=== PATIENT | female | born 1990 | race Caucasian/White ===

== ENCOUNTER 2020-08-19 11:13 | Outpatient (CLI) | payer OTHER, SELFPAY ==
[2020-08-19 11:47] LABS: Basophils Percent Auto 1.3 % (0.2-1.2); Eosinophils Absolute Auto 0.1 K/mm3 (0-0.3); Eosinophils Percent Auto 1.9 % (0-4.4); Hemoglobin 14.2 g/dL (12.0-15.0); Lymphocytes Absolute Auto 1.54 K/mm3 (0.9-3.2); Lymphocytes Percent Auto 48.1 % (18.3-44.2); Mean Corpuscular HGB Conc 33.8 g/dl (32-36); Mean Corpuscular Hemoglobin 30.5 pg (26-34); Mean Corpuscular Volume 90.3 fl (80-100); Mean Platelet Volume 9.6 fl (7.4-10.4); Monocytes Absolute Auto 0.2 K/mm3 (0.1-0.6); Monocytes Percent Auto 7.2 % (2.6-8.5); Neutrophils Absolute Auto 1.3 K/mm3 (1.3-6.7); Neutrophils Percent Auto 41.5 % (45.5-73.1); Platelet Count Result 197 k/mm3 (150-375); Red Blood Count 4.65 M/mm3 (4.2-5.4); Red Cell Distribution Width 11.7 % (11.5-14.5); White Blood Count 3.2 K/mm3 (4.5-10.0)
[2020-08-19 12:00] LABS: Anion Gap 6 mmol/L (8-16); Blood Urea Nitrogen 6 mg/dL (7-17); Calcium 9.9 mg/dL (8.4-10.2); Carbon Dioxide 29 mmol/L (22-30); Chloride 104 mmol/L (98-107); Estimated Glomerular Filt Rate > 60; Glucose 91 mg/dL (65-105); Potassium 4.1 mmol/L (3.4-5.0); Sodium 139 mmol/L (137-145)
[2020-08-19 12:29] LABS: Thyroid Stimulating Hormone 0.829 uIU/mL (0.465-4.680)
== END 2020-08-19 11:14 | disposition home or self-care (01) ==
LOC: ANHLAB 11:15
PROVIDERS: PCP Family Medicine; Visit Provider Nurse Practitioner Family
DX: R59.1 Generalized enlarged lymph nodes (principal); Z80.7 Family history of other malignant neoplasms of lymphoid, hematopoietic and related tissues; Z13.1 Encounter for screening for diabetes mellitus; Z13.29 Encounter for screening for other suspected endocrine disorder
CPT/HCPCS: 36415; 80048; 84443; 85025

== ENCOUNTER 2020-08-26 13:33 | Outpatient (CLI) | payer OTHER, SELFPAY ==
--- NOTE | ~2020-08-26 | US_ITS ---
EXAMINATION: US soft tissue head and neck DATE: 08/26/2020 14:05 INDICATION: Localized enlarged lymph nodes. Left supraclavicular swelling. TECHNIQUE: Multiple grayscale and Doppler ultrasound images of the left subclavicular region were obt ained. COMPARISON: None FINDINGS: There are normal lymph nodes in the left supraclavicular region in the patient's area of co ncern. IMPRESSION: 1. Normal left subclavicular lymph nodes in the patient's area of concern. Reviewed, dictated and finalized at location A. OLIDS MANAGEMENT TECHNICIAN
== END 2020-08-26 13:34 | disposition home or self-care (01) ==
PROVIDERS: PCP Family Medicine; Visit Provider Nurse Practitioner Family
DX: R59.0 Localized enlarged lymph nodes (principal)
CPT/HCPCS: 76536

== ENCOUNTER 2020-09-05 16:23 | Outpatient (CLI) | payer OTHER, SELFPAY ==
[2020-09-05 16:48] LABS: Basophils Percent Auto 0.7 % (0.2-1.2); Eosinophils Absolute Auto 0.1 K/mm3 (0-0.3); Eosinophils Percent Auto 2.9 % (0-4.4); Hematocrit 37.7 % (37.0-47.0); Hemoglobin 12.8 g/dL (12.0-15.0); Lymphocytes Absolute Auto 1.83 K/mm3 (0.9-3.2); Lymphocytes Percent Auto 44.2 % (18.3-44.2); Mean Corpuscular Hemoglobin 30.7 pg (26-34); Mean Corpuscular Volume 90.4 fl (80-100); Mean Platelet Volume 9.6 fl (7.4-10.4); Monocytes Absolute Auto 0.3 K/mm3 (0.1-0.6); Monocytes Percent Auto 7.7 % (2.6-8.5); Neutrophils Absolute Auto 1.8 K/mm3 (1.3-6.7); Neutrophils Percent Auto 44.5 % (45.5-73.1); Platelet Count Result 199 k/mm3 (150-375); Red Blood Count 4.17 M/mm3 (4.2-5.4); White Blood Count 4.1 K/mm3 (4.5-10.0)
== END 2020-09-05 16:24 | disposition home or self-care (01) ==
LOC: ANHLAB 16:25
PROVIDERS: PCP Family Medicine; Visit Provider Physician Assistant Medical
DX: D72.9 Disorder of white blood cells, unspecified (principal)
CPT/HCPCS: 36415; 85025

== ENCOUNTER 2020-09-24 07:39 | Outpatient (CLI) | payer OTHER, SELFPAY ==
--- NOTE | ~2020-09-24 | US_ITS ---
US abdomen complete DATE: 09/24/2020 08:59 INDICATION: Leukopenia TECHNIQUE: Real-time imaging and Doppler analysis COMPARISON: None FINDINGS: No hepatic or pancreatic space-occupying mass lesion is evident. Normal hepatopedal portal venous flow direction. The common bile duct measures 4.7 mm, within normal limits. No gallstones or gallbladder wall thickening. Negative sonographic Carrera's sign. No renal mass lesion or hydronephrosis. Normal caliber of the abdominal aorta. Normal splenic size. Normal caliber of the abdominal aorta. The inferior vena cava is unremarkable. IMPRESSION: No significant abnormality Reviewed, dictated and finalized at Location A. Reviewed, dictated and finalized at location A. SPOTTER IMPRESSION: No significant abnormality
[2020-09-24 08:10] LABS: Basophils Percent Auto 0.7 % (0.2-1.2); Eosinophils Absolute Auto 0.1 K/mm3 (0-0.3); Hematocrit 40.6 % (37.0-47.0); Hemoglobin 13.7 g/dL (12.0-15.0); Immature Granulocyte Absolute 0.01 K/mm3 (0.00-0.031); Immature Granulocyte Percent A 0.2 % (0-0.5); Lymphocytes Absolute Auto 1.75 K/mm3 (0.9-3.2); Lymphocytes Percent Auto 43.6 % (18.3-44.2); Mean Corpuscular HGB Conc 33.7 g/dl (32-36); Mean Corpuscular Hemoglobin 30.8 pg (26-34); Mean Corpuscular Volume 91.2 fl (80-100); Mean Platelet Volume 9.7 fl (7.4-10.4); Monocytes Absolute Auto 0.3 K/mm3 (0.1-0.6); Monocytes Percent Auto 6.7 % (2.6-8.5); Neutrophils Absolute Auto 1.8 K/mm3 (1.3-6.7); Neutrophils Percent Auto 45.8 % (45.5-73.1); Platelet Count Result 187 k/mm3 (150-375); Red Blood Count 4.45 M/mm3 (4.2-5.4); Red Cell Distribution Width 11.9 % (11.5-14.5)
[2020-09-24 08:23] LABS: Alanine Aminotransferase 21 U/L (4-35); Albumin Level 4.6 g/dL (3.5-5.1); Alkaline Phosphatase 34 U/L (38-126); Anion Gap 8 mmol/L (8-16); Aspartate Amino Transferase 29 U/L (14-36); Bilirubin,Total 0.8 mg/dL (0.2-1.3); Blood Urea Nitrogen 10 mg/dL (7-17); Calcium 9.4 mg/dL (8.4-10.2); Carbon Dioxide 28 mmol/L (22-30); Chloride 104 mmol/L (98-107); Estimated Glomerular Filt Rate > 60; Glucose 91 mg/dL (65-105); Potassium 3.9 mmol/L (3.4-5.0); Sodium 140 mmol/L (137-145)
[2020-09-24 08:49] LABS: Iron 146 ug/dL (37-170)
[2020-09-24 08:58] LABS: Percent Iron Saturation 51 % (20-50)
[2020-09-24 09:32] LABS: Folic Acid > 20.0 ng/mL (2.76->20)
== END 2020-09-24 07:40 | disposition home or self-care (01) ==
PROVIDERS: PCP Family Medicine; Visit Provider Internal Medicine Hematology & Oncology
DX: D72.819 Decreased white blood cell count, unspecified (principal)
CPT/HCPCS: 36415; 76700; 80053; 82607; 82728; 82746; 83540; 83550; 85025; 86038

== ENCOUNTER 2021-01-06 11:42 | Outpatient (CLI) | payer OTHER, SELFPAY ==
[2021-01-06 12:03] LABS: Basophils Percent Auto 0.8 % (0.2-1.2); Eosinophils Absolute Auto 0.1 K/mm3 (0-0.3); Eosinophils Percent Auto 1.6 % (0-4.4); Hematocrit 39.2 % (37.0-47.0); Lymphocytes Absolute Auto 1.48 K/mm3 (0.9-3.2); Lymphocytes Percent Auto 40.5 % (18.3-44.2); Mean Corpuscular HGB Conc 33.2 g/dl (32-36); Mean Corpuscular Hemoglobin 30.2 pg (26-34); Mean Platelet Volume 9.3 fl (7.4-10.4); Monocytes Absolute Auto 0.3 K/mm3 (0.1-0.6); Monocytes Percent Auto 7.7 % (2.6-8.5); Neutrophils Absolute Auto 1.8 K/mm3 (1.3-6.7); Neutrophils Percent Auto 49.4 % (45.5-73.1); Platelet Count Result 196 k/mm3 (150-375); Red Blood Count 4.31 M/mm3 (4.2-5.4); Red Cell Distribution Width 11.9 % (11.5-14.5); White Blood Count 3.7 K/mm3 (4.5-10.0)
[2021-01-06 12:25] LABS: Iron 129 ug/dL (37-170)
[2021-01-06 12:35] LABS: Percent Iron Saturation 48 % (20-50)
[2021-01-06 14:52] LABS: Folic Acid > 20.0 ng/mL (2.76->20)
== END 2021-01-06 11:43 | disposition home or self-care (01) ==
LOC: ANHLAB 11:46
PROVIDERS: PCP Family Medicine; Visit Provider Internal Medicine Hematology & Oncology
DX: D72.819 Decreased white blood cell count, unspecified (principal)
CPT/HCPCS: 36415; 82607; 82728; 82746; 83540; 83550; 85025

== ENCOUNTER 2021-05-08 15:06 | Outpatient (CLI) | payer OTHER, SELFPAY ==
[2021-05-08 15:40] LABS: Basophils Percent Auto 0.4 % (0.2-1.2); Eosinophils Absolute Auto 0.1 K/mm3 (0-0.3); Eosinophils Percent Auto 1.5 % (0-4.4); Hematocrit 37.5 % (37.0-47.0); Hemoglobin 12.8 g/dL (12.0-15.0); Immature Granulocyte Absolute 0.01 K/mm3 (0.00-0.031); Immature Granulocyte Percent A 0.2 % (0-0.5); Lymphocytes Absolute Auto 1.66 K/mm3 (0.9-3.2); Lymphocytes Percent Auto 36.2 % (18.3-44.2); Mean Corpuscular HGB Conc 34.1 g/dl (32-36); Mean Corpuscular Volume 90.8 fl (80-100); Mean Platelet Volume 9.4 fl (7.4-10.4); Monocytes Absolute Auto 0.3 K/mm3 (0.1-0.6); Monocytes Percent Auto 7.4 % (2.6-8.5); Neutrophils Absolute Auto 2.5 K/mm3 (1.3-6.7); Neutrophils Percent Auto 54.3 % (45.5-73.1); Platelet Count Result 185 k/mm3 (150-375); Red Blood Count 4.13 M/mm3 (4.2-5.4); Red Cell Distribution Width 11.9 % (11.5-14.5); White Blood Count 4.6 K/mm3 (4.5-10.0)
[2021-05-08 16:50] LABS: Folic Acid > 20.0 ng/mL (2.76->20)
[2021-05-08 17:10] LABS: Iron 117 ug/dL (37-170)
[2021-05-08 17:19] LABS: Percent Iron Saturation 46 % (20-50)
== END 2021-05-08 15:07 | disposition home or self-care (01) ==
LOC: ANHLAB 15:09
PROVIDERS: PCP Family Medicine; Visit Provider Internal Medicine Hematology & Oncology
DX: D72.819 Decreased white blood cell count, unspecified (principal); D50.9 Iron deficiency anemia, unspecified
CPT/HCPCS: 36415; 82607; 82728; 82746; 83540; 83550; 85025

== ENCOUNTER 2022-05-22 04:57 | Inpatient (IN) | payer OTHER, SELFPAY ==
[2022-05-22] VITALS (106 sets, daily range): BP systolic 91–133; BP diastolic 39–111; PULSE 64–145; RESP 16–18; TEMP 36.6–37; O2SAT 79–100; BMI 33.2
--- NOTE | 2022-05-22 05:23 | LDADM ---
This patient, Fadi Chi, was admitted to Labor/Delivery/Recovery 105 on 05/22/22 at 04:57. Plans for labor, pain management and were discussed with patient. Patient/family oriented to hospital policies and general routines including ID bracelet, bed and alarms, visiting hours, pain management, procedures, bathroom and other care routines, personal items, smoking policy, room service/diet and guest tray routines, infant security routines, and visiting hours. Patient/Family are encouraged to report perceived risks to care and to ask questions if they do not understand what they are told or what they should do. See OBIX for further documentation.
[2022-05-22 05:29] LABS: Basophils Percent Auto 0.3 % (0.2-1.2); Eosinophils Percent Auto 0.6 % (0-4.4); Hematocrit 40.1 % (37.0-47.0); Hemoglobin 13.8 g/dL (12.0-15.0); Immature Granulocyte Absolute 0.01 K/mm3 (0.00-0.031); Immature Granulocyte Percent A 0.1 % (0-0.5); Lymphocytes Absolute Auto 1.78 K/mm3 (0.9-3.2); Lymphocytes Percent Auto 25.8 % (18.3-44.2); Mean Corpuscular HGB Conc 34.4 g/dl (32-36); Mean Corpuscular Hemoglobin 32.2 pg (26-34); Mean Corpuscular Volume 93.5 fl (80-100); Mean Platelet Volume 10.6 fl (7.4-10.4); Monocytes Absolute Auto 0.5 K/mm3 (0.1-0.6); Monocytes Percent Auto 7.4 % (2.6-8.5); Neutrophils Absolute Auto 4.5 K/mm3 (1.3-6.7); Neutrophils Percent Auto 65.8 % (45.5-73.1); Platelet Count Result 173 k/mm3 (150-375); Red Blood Count 4.29 M/mm3 (4.2-5.4); Red Cell Distribution Width 12.5 % (11.5-14.5); White Blood Count 6.9 K/mm3 (4.5-10.0)
[2022-05-22] MEDS: LACTATED RINGERS 1,000 ML 125 ML IV CONT ×2 (05:34→11:58)
[2022-05-22] MEDS: OXYTOCIN 30 UNITS/NS 500 ML 30 UNITS/500 ML BAG 6 UNITS IV CONT (05:35)
--- NOTE | 2022-05-22 07:04 | PM.IMHP ---
H&P: HPI History of Present Illness Date/Time: 05/22/22 07:04 Chief Complaint: Induction of labor postdates Narrative: this is a 32-year-old 1 para 0 with last menstrual. She has an EDC of 05/20/2022 confirmed by early visit presents at 40 and 2 7 weeks gestation for induction labor. She has negative negative for group B strep PMFSH Past Medical History Medical History BMI 27.0-27.9,adult Dietary counseling and surveillance (07/11/18) Routine physical examination Family History Family History Mother Hyperlipidemia Hypertension Grandparent Family history of type 2 diabetes mellitus Sibling Family history of Hodgkin's lymphoma Father Gout Congestive heart failure Chronic kidney disease S/P CABG x 4 Social History Social History Smoking status: Former smoker Tobacco type: cigarettes Second hand tobacco smoke exposure: No Alcohol intake: current Substance use: former Substance use type: marijuana 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 Gender identity (if verbalized by the patient): Female Spiritual care concerns: No Meds Home Medications and Allergies Home Medications Medication Instructions Recorded Confirmed Type docusate sodium 50 mg capsule 50 mg PO DAILY 05/22/22 05/22/22 History vits 75-iron 28 mg-folic 1 pkg PO DAILY 05/22/22 05/22/22 History acid 800 mcg-omega3 440 mg oral pack Allergies Allergy/AdvReac Type Severity Reaction Status Date / Time No Known Allergies Allergy Verified 05/22/22 05:12 Vital Signs Vital Signs - 24 hr 05/22/22 05:12 05/22/22 05:15 05/22/22 05:31 Temperature Pulse Rate 79 95 89 Respiratory Rate Blood Pressure 116/77 129/88 118/82 Oxygen Delivery 05/22/22 05:45 05/22/22 06:01 05/22/22 06:16 Temperature 97.9 F Pulse Rate 74 79 75 Respiratory Rate 16 Blood Pressure 118/85 109/69 133/86 Oxygen Delivery 05/22/22 06:31 05/22/22 06:46 05/22/22 07:00 Temperature Pulse Rate 68 80 91 Respiratory Rate Blood Pressure 118/72 125/82 127/98 H Oxygen Delivery 05/22/22 05:15 05/22/22 05:14 Temperature Pulse Rate 79 Respiratory Rate Blood Pressure 116/77 Oxygen Delivery Room Air Exam Const: General: cooperative, healthy appearing, comfortable and well groomed Nutritional Appearance: average body habitus Orientation/consciousness: oriented to person, oriented to place and oriented to time HENMT: Head: normal to inspection Resp: Effort & Inspection: normal respiratory effort Cardio: Rate: regular rate Rhythm: regular rhythm Heart sounds: S1 normal heart sound present and S2 normal heart sound present GI: Inspection: normal to inspection ( gravid soft uterus) : External Female Exam: normal external appearance Speculum Exam - Vagina: normal appearance of the vagina Speculum Exam - Cervix: Cervical os open ( cervix . Temp today ROM without fluid. FHTs reassuring) H&P: Results Labs Labs: Short CBC 05/22/22 Range/Units 05:24 WBC 6.9 (4.5-10.0) K/mm3 Hgb 13.8 (12.0-15.0) g/dL Hct 40.1 (37.0-47.0) % Plt Count 173 (150-375) k/mm3 Assessment and Plan Assessment and plan (1) Term : Code(s): Z34.90 - Encounter for supervision of normal , unspecified, unspecified trimester Status: Acute Plan medical induction of labor. Spontaneous vaginal of a expected. She has an epidural candidate
[2022-05-22 09:22] LABS: Rapid Plasma Reagin Non-Reactive (NonReactive)
--- NOTE | 2022-05-22 10:45 | PM.OBPNLAB ---
Pain Control Date/time seen: 05/22/22 10:45 Pain control: tolerating well Pelvic Exam Dilation (cm): 2 Effacement (%): 75 station: -2 Amniotic membrane status: Ruptured Contractions Monitor mode: Internal
[2022-05-22] MEDS: fentaNYL CITRATE INJ (*CRX) 100 MCG/2 ML VIAL 50 MCG IV PUSH (12:15)
--- NOTE | 2022-05-22 12:45 | WPDANESEPP ---
Anes - Eval Pre Procedure Procedure: labor pain management Date/Time: 05/22/22 12:45 Surgeon: Herb Huff Preop Diagnosis: pain during labor Pre Op Diagnosis: IOL Patient Data Age: 32 Gender: F Height: 1.6 m Weight: 85 kg Last Vital Signs Temp 97.9 F 05/22/22 05:45 Pulse 72 05/22/22 12:43 Resp 16 05/22/22 05:45 BP 107/68 05/22/22 12:43 Pulse Ox 100 05/22/22 12:43 O2 Del Method Room Air 05/22/22 05:15 Allergies Allergy/AdvReac Type Severity Reaction Status Date / Time No Known Allergies Allergy Verified 05/22/22 05:12 Home Medications Medication Instructions Recorded Confirmed Type docusate sodium 50 mg capsule 50 mg PO DAILY 05/22/22 05/22/22 History vits 75-iron 28 mg-folic 1 pkg PO DAILY 05/22/22 05/22/22 History acid 800 mcg-omega3 440 mg oral pack Laboratory Tests 05/22/22 05/22/22 05/22/22 05:24 05:24 05:24 WBC 6.9 K/mm3 K/mm3 (4.5-10.0) RBC 4.29 M/mm3 M/mm3 (4.2-5.4) Hgb 13.8 g/dL g/dL (12.0-15.0) Hct 40.1 % % (37.0-47.0) MCV 93.5 fl fl (80-100) MCH 32.2 pg pg (26-34) MCHC 34.4 g/dl g/dl (32-36) RDW 12.5 % % (11.5-14.5) Plt Count 173 k/mm3 k/mm3 (150-375) MPV 10.6 fl H fl (7.4-10.4) Immature Gran % (Auto) 0.1 % % (0-0.5) Neut % (Auto) 65.8 % % (45.5-73.1) Lymph % (Auto) 25.8 % % (18.3-44.2) Ness % (Auto) 7.4 % % (2.6-8.5) Eos % (Auto) 0.6 % % (0-4.4) Baso % (Auto) 0.3 % % (0.2-1.2) Lymph # (Auto) 1.78 K/mm3 K/mm3 (0.9-3.2) Ness # (Auto) 0.5 K/mm3 K/mm3 (0.1-0.6) Eos # (Auto) 0.0 K/mm3 K/mm3 (0-0.3) Baso # (Auto) 0.0 K/mm3 K/mm3 (0.0-0.1) Abs Immat Gran (auto) 0.01 K/mm3 K/mm3 (0.00-0.031) Absolute Neuts (auto) 4.5 K/mm3 K/mm3 (1.3-6.7) Absolute Nucleated RBC 0.0 K/mm3 K/mm3 (0.0-0.012) Nucleated RBC % 0.0 % % (0.0-0.2) RPR Non-reactive (NonReactive) Blood Type A Positive Antibody Screen Negative Patient hx anesthesia problems: none Family hx anesthesia problems: none Prior surgeries: acl repair Results Review: All pre-operative results and documents have been reviewed as part of the pre-operative evaluation. 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 Gender identity (if verbalized by the patient): Female Spiritual care concerns: No Exam Day of Procedure 05/22/22 12:45
--- NOTE | 2022-05-22 15:39 | PM.OBPRVD ---
OB - Delivery Note Procedure Delivery date: 05/22/22 Procedure: mil Induction method: AROM Delivery augmentation: Pitocin Delivery monitor: External FHT and Internal Uterine Route of delivery: Episiotomy description: None Laceration Description: Perineal - 2nd Degree Delivery repair: vicryl Specimen: No Quantitative Blood Loss (ml): 59 Anesthesia type: Epidural Disposition: Floor [place] Baby Date of : 05/22/22 Time of : 15:26 Weeks of gestation at delivery: 40 gender: Female Weight (pounds): 7 Weight (ounces): 14 presentation: vertex position: Right Occiput Anterior Placenta delivery description: Spontaneous Cord Vessel Description: 3 Vessels score one minute: 9 score five minutes: 9
--- NOTE | 2022-05-22 18:32 | PC.NURSE ---
Patient transferred to post room #284 per wheelchair from labor and delivery. Support person present. Oriented to unit, room, information board, rooming in, admission packet and security measures. Patient verbalizes understanding.
[2022-05-22] MEDS: IBUPROFEN 600 MG TABLET PO (20:34)
[2022-05-22] MEDS: BENZOCAINE 20% AER SPR (*SP) 56 GM CAN 1 SPRAY TOPICAL (20:38)
[2022-05-22] MEDS: WITCH HAZEL 40 PADS 1 PAD TOPICAL (20:38)
[2022-05-22] MEDS: LANOLIN (LANSINOH) 7.5 GM CREAM 1 APPLIC TOPICAL (20:39)
[2022-05-23 03:15] VITALS: BP 109/72; PULSE 68; RESP 16; TEMP 36.7
[2022-05-23] MEDS: IBUPROFEN 600 MG TABLET PO ×4 (03:15→23:48)
[2022-05-23 07:45] VITALS: BP 114/72; PULSE 76; RESP 16; TEMP 36.5; O2SAT 98
--- NOTE | 2022-05-23 07:52 | PM.OBPNVD ---
OB - PN: Subj Subjective Date/time seen: 05/23/22 07:52 Patient comments: no complaints and pain well controlled baby status: doing well and nursing well OB - PN: Obj Data Labs CBC & Chem 7: 05/23/22 03:19 Labs: Laboratory Results - last 24 hr 05/22/22 05/23/22 05:24 03:19 Hgb 12.0 Hct 35.0 L RPR Non-reactive OB - PN A/P Plan day: 1 Plan: routine care Time Spent With Patient Time: Total time spent is greater than 50% in coordination of care (as documented) at patient's floor/unit and/or counseling patient: Time with patient: less than 15 minutes Exam Const: General: cooperative, healthy appearing and comfortable Orientation/consciousness: oriented to person, oriented to place and oriented to time Resp: Effort & Inspection: normal respiratory effort GI: Inspection: normal to inspection
[2022-05-23] MEDS: ACETAMINOPHEN 325 MG TABLET 650 MG PO ×3 (08:00→20:04)
[2022-05-23] MEDS: WITCH HAZEL 40 PADS 1 PAD TOPICAL (08:36)
[2022-05-23] MEDS: DOCUSATE SODIUM 100 MG CAPSULE PO ×2 (08:36→17:34)
[2022-05-23] MEDS: DIBUCAINE 1% OINTMENT 30 GM TUBE 1 APPLIC TOPICAL (08:36)
[2022-05-23] MEDS: MULTIVIT/MIN/PREN/FOL AC/IRON TABLET 1 TAB PO (08:36)
--- NOTE | 2022-05-23 08:40 | WPDANESPN ---
Anes - Prog Note Post-Op Date/Time: 05/23/22 08:40 Cardiovascular status: normal Respiratory status: normal Airway patency: baseline Mental status: baseline Post-Op hydration status: normal Vital Signs: Last Vital Signs Temp 36.7 C 05/23/22 03:15 Pulse 68 05/23/22 03:15 Resp 16 05/23/22 03:15 BP 109/72 05/23/22 03:15 Pulse Ox 100 05/22/22 15:42 O2 Del Method Room Air 05/22/22 05:15 Pain Score (VAS): 0 I/O: Intake & Output 05/22/22 05/23/22 05/23/22 23:59 07:59 15:59 Intake Total 1500 Output Total 160 Balance 1340 Laboratory Tests 05/23/22 03:19 05/22/22 05/23/22 05:24 03:19 Hgb 12.0 Hct 35.0 L RPR Non-reactive Post-procedural complaints: none Patient Feedback: Patient satisfied with anesthetic care.
[2022-05-23 10:28] VITALS: PULSE 76; RESP 16; O2SAT 98
[2022-05-23 12:30] VITALS: BP 122/80; PULSE 76; PULSE 77; RESP 16; RESP 18; TEMP 36.5; O2SAT 98
--- NOTE | 2022-05-23 13:48 | PC.NURSE ---
0810- Introductions were made, then consulted with patient to assess needs related to . Mother led the conversation with her?plans to feed?her infant and the?experience so far. Resources provided for inpatient and outpatient services using a resource guide and mom/baby guide. Mother voiced understanding of information, will call if there is a request for assistance after placing infant skin to skin. Primary RN present. [phone] Consulted with patient to assess needs related to as mother states her nipples are sore. There's a small bruise on the left areola and bruising on the tip of the nipples. Mother works well with her with encouragement. Reviewed working with , breast, nipples and how to protect the nipples with an optimal deep latch and good positioning. Encouraged understanding the benefits of skin to skin, responding to feeding cues, frequencies of feeding 8-12 times in 24 hours (approximately 2-3 hours), duration of feedings, milk production, intake/output feeding sheet and signs of adequate intake encouraging swallowing at the breast. Reviewed positioning and alignment, supporting breast, off-centered (asymmetrical latch) and leading with the chin with big open wide gape. Infant latched to the left and the right breast using football and cross cradle positioning to attempt to achieve an optimal latch without any misshaped nipple. After each detach the nipple was flattened on the underside of the nipple. Infant has a tongue that appears to have a tight lower frenulum. moves the tongue past the gumline at times. Discussed the gamer visit after the assessment to see what if anything needs to be done. Mother is concerned that she may have gently allowed to latch without a big, open, wide gape previously to meeting RN. Education given to mother of how to visualize suck/swallow ratios and listen for drinking at the breast. was able to maintain latch for 5-8 minutes but not without discomfort to mother. Resources used to facilitate learning were used from the tool. After practicing mother was encouraged to eat her food and call for practice 2-3 hours from the start of this last breastfeed practice. Mother voiced understanding of the education shared, calling for assistance if the does not wake to latch or if there is discomfort with . Reported to the primary RN. [phone] Primary RN is in the room assisting mother with infant to the breast using sugar water and a syringe. RN began assisting infant to the breast encouraging mother. had a void and stool at 0830 and now has a heavy urine diaper with a small green stool which was encouraging after visualizing rare swallowing during the earlier breastfeed. During the time reviewing and working with mother on different positions, encouraging to latch with a big, open, wide gape, encouraging mother to wait for the optimal open mouth, the attempts made on both breast the Post Adoption Coordinator entered the room, and the assessment findings were discussed along with the possibility of a frenulectomy. Reported to the primary RN.
[2022-05-23 19:57] VITALS: BP 119/77; PULSE 70; RESP 18; TEMP 36; O2SAT 99
--- NOTE | 2022-05-24 07:51 | PM.DS ---
DS: Admitting Diagnosis Discharge Date 05/24/2022 Admitting Diagnosis term DS: Discharge Diagnosis Discharge Diagnosis (1) Term : Code(s): Z34.90 - Encounter for supervision of normal , unspecified, unspecified trimester Status: Acute DS: Summary Hospital Course Reason for hospitalization: labor at term Hospital Course: patient is 1 now para 1 who is admitted in active labor. She underwent spontaneous vaginal delivery which was unremarkable. Her 48hour course was unremarkable. She remained afebrile. She was up, voiding without difficulty, ambulating, breast-feeding, generally without complaints. Time Spent with Patient Time attestation: Total time spent providing and/or coordinating discharge services: Exam Const: General: cooperative, healthy appearing and comfortable Nutritional Appearance: average body habitus HENMT: Head: normal to inspection Chest: Chest palpation & inspection: normal inspection of the chest Resp: Effort & Inspection: normal respiratory effort GI: Inspection: normal to inspection Discharge Plan Discharge Attending physician on discharge: Nicolás Alexander Discharging Clinician: Nicolás Alexander Patient Disposition: Home, Self-Care Activity: may shower, no straining and pelvic rest Diet: heart healthy Wound Care Instructions: follow printed instructions Patient Instructions: Antibiotic Form Stand Alone Forms: General Discharge Information Follow-up/Referrals: Nicolás Alexander MD [Physician] - Discharge Medications: Continued docusate sodium 50 mg Capsule 50 mg PO DAILY Daily [phone] mg-mcg-mg Combo Pack 1 pkg PO DAILY Date of admission: 05/22/22 04:57 Primary Care Provider: Tom Wood Admitting Provider: Nicolás Alexander Attending physician on admission: Nicolás Alexander Condition: Stable
--- NOTE | 2022-05-24 07:53 | PM.OBPNVD ---
OB - PN: Subj Subjective Date/time seen: 05/24/22 07:53 Patient comments: no complaints and pain well controlled baby status: doing well and nursing well OB - PN: Obj Data Labs CBC & Chem 7: 05/23/22 03:19 OB - PN A/P Plan day: 2 Plan: routine care Time Spent With Patient Time: Total time spent is greater than 50% in coordination of care (as documented) at patient's floor/unit and/or counseling patient: Time with patient: less than 15 minutes Exam Const: General: cooperative, healthy appearing and comfortable
[2022-05-24 08:00] VITALS: BP 112/66; PULSE 72; RESP 16; TEMP 36.2; O2SAT 99
[2022-05-24 08:30] VITALS: PULSE 72; RESP 16; O2SAT 99
[2022-05-24] MEDS: DOCUSATE SODIUM 100 MG CAPSULE PO (08:34)
[2022-05-24] MEDS: BENZOCAINE 20% AER SPR (*SP) 56 GM CAN 1 SPRAY TOPICAL (08:34)
[2022-05-24] MEDS: WITCH HAZEL 40 PADS 1 PAD TOPICAL (08:34)
[2022-05-24] MEDS: IBUPROFEN 600 MG TABLET PO (08:34)
[2022-05-24] MEDS: MULTIVIT/MIN/PREN/FOL AC/IRON TABLET 1 TAB PO (08:35)
--- NOTE | 2022-05-24 12:40 | PC.NURSE ---
1010 - Consulted with patient to assess how was going. is in the nursery for an assessment and mother will begin eating breakfast. POC to practice together today for an improved latch after has had a frenulectomy and mother's nipples are sore. 1030- 1053 RN brought infant into the room with mother after visualizing moderate to late feeding cues in the nursery. Mother works well with her . placed skin to skin upright on mother. Mother responses to feeding cues. latched to the left breast in football position. Education given to mother of how to visualize suck/swallow ratios and listening for drinking at the breast. was able to maintain latch with discomfort initially, then discomfort subsided to mother. Nipple care reviewed with optimal latch and good positioning. After 8-10 minutes mother described a sllight pinching sensation and infant was detached from the breast. The left nipple was flattened on the underside of the nipple. Reviewed suggestion of changing positioning while infant is learning a new latch. was tucked in close to mother's body and optimally latch to the left breast using a cross cradle position after a few attempts. Mother states there is an initial discomfort, then it subsides. Reviewed with mother to view her nipple when detaches and to detach if there is pain. Mother voiced understanding of skin to skin, offering the other breast for frequent feedings calling for assistance with latching. Mother voiced understanding of responsive feedings, stimulating with skin to skin, massage touch, talking to infant to encourage if it has been 2 -3 hours since the start of the last , to call if infant does not wake to latch or if there is discomfort with . Reported to the primary RN.
[2022-05-25 09:47] VITALS: BP 124/85; PULSE 78; RESP 16; TEMP 36.7; O2SAT 99
== END 2022-05-24 15:28 | disposition home or self-care (01) | DRG 807 ==
LOC: ANHLDR 15:39 → ANHOB2 18:43
PROVIDERS: Admitting Provider Obstetrics & Gynecology; PCP Family Medicine; Visit Provider Obstetrics & Gynecology
DX: O36.8330 Maternal care for abnormalities of the fetal heart rate or rhythm, third trimester, not applicable or unspecified (principal); Z37.0 Single live birth; Z3A.40 40 weeks gestation of pregnancy; Z23 Encounter for immunization
CPT/HCPCS: 36415; 85014; 85018; 85025; 86592; 86850; 86900; 86901; 90471; 90686; A9270; G0008; J2590; J2795; J3010; J7120

== ENCOUNTER 2022-07-02 14:19 | Outpatient (CLI) | payer OTHER, SELFPAY ==
[2022-07-02 15:32] LABS: Basophils Percent Auto 0.4 % (0.2-1.2); Eosinophils Absolute Auto 0.2 K/mm3 (0-0.3); Eosinophils Percent Auto 4.8 % (0-4.4); Hematocrit 40.1 % (37.0-47.0); Hemoglobin 13.5 g/dL (12.0-15.0); Immature Granulocyte Absolute 0.01 K/mm3 (0.00-0.031); Immature Granulocyte Percent A 0.2 % (0-0.5); Lymphocytes Percent Auto 32.4 % (18.3-44.2); Mean Corpuscular HGB Conc 33.7 g/dl (32-36); Mean Corpuscular Hemoglobin 31.3 pg (26-34); Mean Platelet Volume 9.9 fl (7.4-10.4); Monocytes Absolute Auto 0.3 K/mm3 (0.1-0.6); Monocytes Percent Auto 5.8 % (2.6-8.5); Neutrophils Absolute Auto 2.6 K/mm3 (1.3-6.7); Neutrophils Percent Auto 56.4 % (45.5-73.1); Platelet Count Result 205 k/mm3 (150-375); Red Blood Count 4.31 M/mm3 (4.2-5.4); Red Cell Distribution Width 11.5 % (11.5-14.5); White Blood Count 4.6 K/mm3 (4.5-10.0)
[2022-07-02 15:35] LABS: Anion Gap 9 mmol/L (8-16); Blood Urea Nitrogen 13 mg/dL (7-17); Calcium 9.3 mg/dL (8.4-10.2); Carbon Dioxide 27 mmol/L (22-30); Chloride 104 mmol/L (98-107); Estimated Glomerular Filt Rate > 60; Glucose 92 mg/dL (65-110); Sodium 140 mmol/L (137-145)
[2022-07-02 16:54] LABS: Folic Acid > 20.0 ng/mL (2.76->20)
== END 2022-07-02 14:20 | disposition home or self-care (01) ==
LOC: ANHLAB 14:22
PROVIDERS: PCP Family Medicine; Visit Provider Internal Medicine Hematology & Oncology
DX: D72.819 Decreased white blood cell count, unspecified (principal)
CPT/HCPCS: 36415; 80048; 82607; 82746; 85025

== ENCOUNTER 2022-11-13 09:47 | Outpatient (CLI) | payer OTHER, SELFPAY ==
[2022-11-13 17:28] LABS: Beta HCG Quantitative < 2.39 mIU/ML
== END 2022-11-13 09:48 | disposition home or self-care (01) ==
LOC: ANHWCLAB 09:53
PROVIDERS: PCP Family Medicine; Visit Provider Student in an Organized Health Care Education/Training Program
DX: N92.6 Irregular menstruation, unspecified (principal)
CPT/HCPCS: 36415; 84702

== ENCOUNTER 2023-09-18 08:03 | Outpatient (CLI) | payer OTHER, SELFPAY ==
[2023-09-18 09:33] LABS: Basophils Percent Auto 0.5 % (0.2-1.2); Eosinophils Absolute Auto 0.1 K/mm3 (0-0.3); Eosinophils Percent Auto 2.6 % (0-4.4); Hemoglobin 13.6 g/dL (12.0-15.0); Lymphocytes Absolute Auto 1.38 K/mm3 (0.9-3.2); Lymphocytes Percent Auto 35.8 % (18.3-44.2); Mean Corpuscular HGB Conc 32.4 g/dl (32-36); Mean Corpuscular Hemoglobin 29.2 pg (26-34); Mean Corpuscular Volume 90.1 fl (80-100); Monocytes Absolute Auto 0.3 K/mm3 (0.1-0.6); Monocytes Percent Auto 8.5 % (2.6-8.5); Neutrophils Percent Auto 52.6 % (45.5-73.1); Platelet Count Result 188 k/mm3 (150-375); Red Blood Count 4.66 M/mm3 (4.2-5.4); Red Cell Distribution Width 12.7 % (11.5-14.5); White Blood Count 3.9 K/mm3 (4.5-10.0)
[2023-09-18 09:39] LABS: Alanine Aminotransferase 14 U/L (6-35); Albumin Level 4.5 g/dL (3.5-5.1); Alkaline Phosphatase 54 U/L (38-126); Anion Gap 9 mmol/L (8-16); Aspartate Amino Transferase 43 U/L (14-36); Bilirubin,Total 0.7 mg/dL (0.2-1.3); Blood Urea Nitrogen 11 mg/dL (7-17); Calcium 9.2 mg/dL (8.4-10.2); Carbon Dioxide 24 mmol/L (22-30); Chloride 106 mmol/L (98-107); Cholesterol 193 mg/dL (0-200); Estimated Glomerular Filt Rate > 60; Glucose 94 mg/dL (65-110); HDL Direct 62 mg/dL; Potassium 3.6 mmol/L (3.4-5.0); Sodium 139 mmol/L (137-145); Triglycerides 54 mg/dL (<150)
[2023-09-18 09:49] LABS: LDL Cholesterol Direct 99 mg/dL
== END 2023-09-18 08:04 | disposition home or self-care (01) ==
LOC: ANHWCLAB 08:05
PROVIDERS: PCP Family Medicine; Visit Provider Family Medicine
DX: Z13.220 Encounter for screening for lipoid disorders (principal); D72.9 Disorder of white blood cells, unspecified; R59.1 Generalized enlarged lymph nodes
CPT/HCPCS: 36415; 80053; 80061; 84443; 85025

== ENCOUNTER 2024-09-15 12:54 | Outpatient (CLI) | payer OTHER, SELFPAY ==
--- OUTSIDE RECORDS SUMMARY | 2024-09-15 13:06 | XMS_ITS | Clinical Summary ---
Author Organization [facility] dennis [facility] Address [address] [place] [address] Care Team Providers Care Tile Presser Name Role Phone Tom Wood MD Primary Care Provider Allergies No known active allergies Medications multivitamin (DAILY-EDYTA) tablet Take 1 Tablet by mouth daily. Active loratadine (CLARITIN) 10 mg tablet Take 10 mg by mouth daily. Active Active Problems Problem Noted Date Diagnosed Date Vitamin B12 deficiency (non anemic) 01/11/2021 Neutropenia 09/19/2020 Family History Medical History Relation Name Comments High Cholesterol Mother Hypertension Mother Cancer Sister Lymphoma Sister Relation Name Status Comments Brother Alive Father Alive Mother Alive Sister Alive Social History Tobacco Use Types Packs/Day Years Used Date Smoking Tobacco: Former Smokeless Tobacco: Never Comments:quit 5 yrs ago Alcohol Use Standard Drinks/Week Comments Yes 0 (1 standard drink = 0.6 oz pur e alcohol) occasional Comments No Sex and Gender Information Value Date Recorded Sex Assigned at Not on file 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 Gender Identity Not on file Sexual Orientation Not on file Last Filed Vital Signs Vital Sign Reading Time Taken Comments Blood Pressure 115/79 05/15/2021 8:22 AM CDT Pulse 62 05/15/2021 8:22 AM CDT Temperature 37 ??C (98.6 ??F) 05/15/2021 8:22 AM CDT Respiratory Rate - - Oxygen Saturation 98% 05/15/2021 8:22 AM CDT Inhaled Oxygen Concentration - - Weight 71.7 kg (158 lb 1.6 oz) 05/15/2021 8:22 A M CDT Height 160 cm (5' 3 ) 05/15/2021 8:22 AM CDT Body Mass Index 28.01 05/15/2021 8:22 AM CDT Plan of Treatment Health Maintenance Due Date Last Done Comments DTAP/TDAP/TD VACCINES (1 - Tdap) 2009 HEPATITIS B VACCINES (1 of 3 - 19+ 3-dose series) 2009 CERVICAL CANCER SCREENING 2020 INFLUENZA VACCINE (#1) 2024 HPV VACCINES Aged Out No longer eligi ble based on patient's age to complete this topic PNEUMOCOCCAL VACCINE 0-64 YEARS Aged Out No longer eligible based on patient's age to complete this topic Insurance [employer] PPO [id number] Care Teams Tile Presser Relationship Specialty Start Date End Date Tom Wood MD [address] [place] [address] PCP - General Family Practice 09/19/20
[2024-09-15 18:48] LABS: Free T4 Free Thyroxine 0.84 ng/dL (0.78-2.19)
[2024-09-15 19:10] LABS: Thyroid Stimulating Hormone 0.677 uIU/mL (0.465-4.680)
== END 2024-09-15 12:55 | disposition home or self-care (01) ==
PROVIDERS: PCP Family Medicine; Visit Provider Nurse Practitioner Family
DX: R79.89 Other specified abnormal findings of blood chemistry (principal)
CPT/HCPCS: 36415; 84439; 84443

== ENCOUNTER 2024-09-29 15:08 | Outpatient (CLI) | payer OTHER, SELFPAY ==
--- OUTSIDE RECORDS SUMMARY | 2024-09-29 15:11 | XMS_ITS | Clinical Summary ---
Author Organization [facility] dennis 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 [address] PCP - General Family Practice 09/19/20
[2024-09-29 16:35] LABS: Basophils Percent Auto 0.4 % (0.2-1.2); Eosinophils Absolute Auto 0.1 K/mm3 (0-0.3); Hematocrit 38.6 % (37.0-47.0); Hemoglobin 12.5 g/dL (12.0-15.0); Immature Granulocyte Absolute 0.01 K/mm3 (0.00-0.031); Immature Granulocyte Percent A 0.2 % (0-0.5); Lymphocytes Absolute Auto 2.03 K/mm3 (0.9-3.2); Lymphocytes Percent Auto 41.1 % (18.3-44.2); Mean Corpuscular HGB Conc 32.4 g/dl (32-36); Mean Corpuscular Hemoglobin 29.3 pg (26-34); Mean Corpuscular Volume 90.6 fl (80-100); Mean Platelet Volume 10.2 fl (7.4-10.4); Monocytes Absolute Auto 0.4 K/mm3 (0.1-0.6); Monocytes Percent Auto 8.5 % (2.6-8.5); Neutrophils Absolute Auto 2.4 K/mm3 (1.3-6.7); Neutrophils Percent Auto 48.8 % (45.5-73.1); Platelet Count Result 182 k/mm3 (150-375); Red Blood Count 4.26 M/mm3 (4.2-5.4); Red Cell Distribution Width 12.3 % (11.5-14.5); White Blood Count 4.9 K/mm3 (4.5-10.0)
== END 2024-09-29 15:09 | disposition home or self-care (01) ==
LOC: ANHGOSHLAB 15:09
PROVIDERS: PCP Family Medicine; Visit Provider Family Medicine
DX: D72.9 Disorder of white blood cells, unspecified (principal)
CPT/HCPCS: 36415; 85025